=== PATIENT | female | born 1985 | race Caucasian/White ===

== ENCOUNTER 2016-12-20 15:58 | Emergency (ER) | payer OTHER ==
[2016-12-20 16:44] VITALS: BP 113/71
--- NOTE | 2016-12-20 16:56 | UC ---
Abdominal Pain Female HPI - HPI Summary HPI Summary: Vomiting and diarrhea starting 2 days ago. Has had 10-15 episodes of diarrhea per day, and vomiting/dry heaving every 1-[address], mainly in the morning. Daughter dx with strep last week. - History of Current Complaint Chief Complaint: UCGeneralIllness Stated Complaint: VOMITING, DIARRHEA, AND SORE THROAT Time Seen by Provider: 12/20/16 16:40 Hx Obtained From: Patient Hx Last Menstrual Period: 12/18/16 ?: No Onset/Duration: Gradual Onset, Lasting Days Timing: Constant Severity Initially: Moderate Severity Currently: Moderate Radiates: No Character: Cramping Alleviating Factor(s): Nothing Associated Signs and Symptoms: Positive: Fever, Nausea, Vomiting. Negative: Constipation, Blood in Stool, Urinary Symptoms Allergies/Adverse Reactions: Allergies Allergy/AdvReac Type Severity Reaction Status Date / Time Prednisone Allergy Mild bruising Verified 08/15/16 09:43 PMH/Surg Hx/FS Hx/Imm Hx Endocrine History Of: Denies: Diabetes, Thyroid Disease, Hyperthyroidism, Hypothyroidism, Dyslipidemia Cardiovascular History Of: Denies: Cardiac Disorders, Hypertension, Pacemaker/ICD, Myocardial Infarction , Congestive Heart Failure, Atrial Fibrillation, Deep Vein Thrombosis, Bleeding Disorders Respiratory History Of: Denies: COPD, Asthma, Bronchitis, Pneumonia, Pulmonary Embolism GI/ History Of: Denies: Gastroesophageal Reflux, Ulcer, Gastrointestinal Bleed, Gall Bladder Disease, Kidney Stones, Diverticulitis, Renal Disease, Urosepsis Neurological History Of: Denies: TIA, CVA, Dementia, Seizures, Migraine Psychological History Of: Reports: Anxiety, Depression Denies: Bipolar Disorder, Schizophrenia, Post Traumatic Stress Disorder Cancer History Of: Denies: Lung Cancer, Colorectal Cancer, Breast Cancer, Prostate Cancer, Cervical Cancer Other History Of: Negative For: HIV, Hepatitis B, Hepatitis C, Anticoagulant Therapy - Surgical History Surgical History: Yes Surgery Procedure, Year, and Place: tumor removed R thigh - Family History Known Family History: Positive: Hypertension Negative: Cardiac Disease, Diabetes - Social History Lives: With Family Alcohol Use: Occasionally Substance Use Type: None Smoking Status (MU): Light Every Day Tobacco Smoker Type: Cigarettes Amount Used/How Often: 1-5 cigs per day Length of Time of Smoking/Using Tobacco: 2 years Have You Smoked in the Last Year: Yes Household Exposure Type: Cigarettes - Immunization History Most Recent Influenza Vaccination: not this season Review of Systems Constitutional: Fever Skin: Negative Eyes: Negative ENT: Negative Respiratory: Negative Cardiovascular: Negative Gastrointestinal: Vomiting, Diarrhea Genitourinary: Negative Motor: Negative Neurovascular: Negative Musculoskeletal: Negative Neurological: Negative Psychological: Negative All Other Systems Reviewed And Are Negative: Yes Physical Exam Triage Information Reviewed: Yes Appearance: Well-Appearing, No Pain Distress, Well-Nourished Vital Signs: Initial Vital Signs Temp 99.2 F 12/20/16 16:39 Pulse 67 12/20/16 16:39 Resp 16 12/20/16 16:39 BP 113/71 12/20/16 16:39 Pulse Ox 100 12/20/16 16:39 Vital Signs Reviewed: Yes Eye Exam: Normal Eyes: Positive: Conjunctiva Clear ENT: Positive: Pharynx normal, TMs normal. Negative: Nasal congestion, Nasal drainage, Tonsillar swelling, Tonsillar exudate Dental Exam: Normal Neck exam: Normal Neck: Positive: Supple, Nontender, No Lymphadenopathy Respiratory Exam: Normal Respiratory: Positive: Chest non-tender, Lungs clear, Normal breath sounds, No respiratory distress, No accessory muscle use Cardiovascular Exam: Normal Cardiovascular: Positive: RRR, No Murmur Abdomen Description: Positive: Nontender, No Organomegaly, Soft. Negative: CVA Tenderness (R), CVA Tenderness (L) Musculoskeletal Exam: Normal Neurological Exam: Normal Psychological Exam: Normal Skin Exam: Normal Abd Pain Female Course/Dx - Differential Dx/Diagnosis Provider Diagnoses: Acute gastroenteritis Discharge - Discharge Plan Condition: Stable Disposition: HOME Prescriptions: Ondansetron TAB* [Zofran 4 MG Tab*] 4 mg PO Q6H PRN #10 tab PRN Reason: Nausea Patient Education Materials: Gastroenteritis (ED) Referrals: Juan Jose Hodges MD [Primary Care Provider] - Additional Instructions: Rapid strep negative. Make sure you get seen again if you do not see clear improvement in your symptoms within 48 hours. You can take 2 pills of the zofran together for a bedtime dose.
== END 2016-12-20 17:11 | disposition home or self-care (01) ==
LOC: UCEAST 15:58
DX: K52.9 Noninfective gastroenteritis and colitis, unspecified (principal); Z88.8 Allergy status to other drugs, medicaments and biological substances; F17.210 Nicotine dependence, cigarettes, uncomplicated
CPT/HCPCS: 87651; 99212; G0463

== ENCOUNTER 2017-01-19 08:48 | Emergency (ER) | payer OTHER ==
[2017-01-19 09:04] VITALS: BP 131/80
[2017-01-19] MEDS ORDERED: Acetaminophen TAB* 325 MG PO ONE (09:07)
[2017-01-19] MEDS ORDERED: Ondansetron ODT TAB* 4 MG PO ONE (09:08)
--- NOTE | 2017-01-19 10:34 | UC ---
FLU HPI - HPI Summary HPI Summary: vomiting, diarrhea, hot and cold chills (didn't take her temp) since 01/16/17, just got over strep 2 weeks ago (was on Abx). Ate take out food but no one else sick. [place]. [place] traveled out of the country. No one else is ill at home. Diarrhea stopped 2 days ago. No blood in diarrhea or vomit. - History of Current Complaint Chief Complaint: UCGI Stated Complaint: FEVER,VOMITING,DIARRHEA Time Seen by Provider: 01/19/17 09:07 Hx Obtained From: Patient Hx Last Menstrual Period: 01/18/17 Onset/Duration: Gradual Onset, Lasting Days, Still Present Severity Currently: Moderate Severity Initially: Moderate Pain Intensity: 0 Pain Scale Used: 0-10 Numeric Associated Signs & Symptoms: Positive: Fever - Risk Factors Influenza Risk Factors: Negative - Allergy/Home Medications Allergies/Adverse Reactions: Allergies Allergy/AdvReac Type Severity Reaction Status Date / Time Prednisone Allergy Mild bruising Verified 01/19/17 08:57 Home Medications: Home Medications Diazepam TAB(*) [Valium TAB(*)] 5 mg PO TID PRN 01/19/17 [History Confirmed 04/01] PMH/Surg Hx/FS Hx/Imm Hx Psychological History Of: Reports: Anxiety, Depression Denies: Bipolar Disorder, Schizophrenia, Post Traumatic Stress Disorder Cancer History Of: Denies: Lung Cancer, Colorectal Cancer, Breast Cancer, Prostate Cancer, Cervical Cancer Other History Of: Negative For: HIV, Hepatitis B, Hepatitis C, Anticoagulant Therapy - Surgical History Surgical History: Yes Surgery Procedure, Year, and Place: tumor removed R thigh - Family History Known Family History: Positive: Hypertension Negative: Cardiac Disease, Diabetes - Social History Occupation: Employed Full-time Lives: With Family Alcohol Use: Occasionally Substance Use Type: None Smoking Status (MU): Light Every Day Tobacco Smoker Type: Cigarettes Amount Used/How Often: 1/4 PPD Length of Time of Smoking/Using Tobacco: since age 25 Have You Smoked in the Last Year: Yes Household Exposure Type: Cigarettes - Immunization History Most Recent Influenza Vaccination: Not the 2016/2016 Season Review of Systems Constitutional: Fever, Chills Skin: Negative Eyes: Negative ENT: Negative Respiratory: Negative Cardiovascular: Negative Gastrointestinal: Vomiting, Diarrhea Genitourinary: Negative Motor: Negative Neurovascular: Negative Musculoskeletal: Myalgia Neurological: Headache Psychological: Negative All Other Systems Reviewed And Are Negative: Yes Physical Exam Triage Information Reviewed: Yes Appearance: No Pain Distress, Well-Nourished, Ill-Appearing Vital Signs: Initial Vital Signs Temp 98.2 F 01/19/17 08:54 Pulse 64 01/19/17 08:54 Resp 18 01/19/17 08:54 BP 131/80 01/19/17 08:54 Pulse Ox 100 01/19/17 08:54 elevated BP noted Vital Signs Reviewed: Yes Eyes: Positive: Conjunctiva Clear ENT: Positive: Hearing grossly normal, Pharyngeal erythema, TMs normal, Tonsillar swelling. Negative: Tonsillar exudate, Muffled/hoarse voice Neck: Positive: Supple, Nontender, No Lymphadenopathy Respiratory: Positive: Lungs clear, Normal breath sounds, No respiratory distress Cardiovascular: Positive: RRR, No Murmur, Pulses Normal, Brisk Capillary Refill Abdomen Description: Positive: Nontender, No Organomegaly, Soft. Negative: CVA Tenderness (R), CVA Tenderness (L), Distended, Guarding, Hepatomegaly, McBurney' s Point Tenderness, Peritoneal Signs, Pulsatile Mass, Splenomegaly Bowel Sounds: Positive: Present Musculoskeletal: Positive: Strength Intact, ROM Intact Neurological: Positive: Alert, Muscle Tone Normal Psychological Exam: Normal Skin Exam: Normal Flu Course/Dx - Differential Dx/Diagnosis Differential Diagnosis/HQI/PQRI: Influenza, Upper Respiratory Infection, Other - gastroenteritis Provider Diagnoses: gastroenteritis Discharge - Discharge Plan Condition: Stable Disposition: HOME Prescriptions: Ondansetron ODT TAB* [Zofran 4 MG Odt TAB*] 4 mg PO Q6H PRN #15 tab.odt PRN Reason: Nausea Patient Education Materials: Gastroenteritis (ED) Forms: *Work Release Referrals: Juan Jose Hodges MD [Primary Care Provider] -
== END 2017-01-19 11:03 | disposition home or self-care (01) ==
LOC: UCCORT 08:48
DX: K52.9 Noninfective gastroenteritis and colitis, unspecified (principal); Z88.8 Allergy status to other drugs, medicaments and biological substances; F41.8 Other specified anxiety disorders; F17.210 Nicotine dependence, cigarettes, uncomplicated
CPT/HCPCS: 87502; 99212; A9270-GY; G0463

== ENCOUNTER 2017-05-29 12:05 | Emergency (ER) | payer OTHER ==
[2017-05-29 13:36] VITALS: BP 107/64
--- NOTE | 2017-05-29 13:48 | UC ---
Back Pain HPI - HPI Summary HPI Summary: 31 y/o female presents to the urgent care c/o RT mid back pain w/ spasm since Monday. Pt states HX of scoliosis and de generative disc disease. Pain is 8/ 10 with movement and 4/10 at rest. Localized to the mid back associated w/ mild selling on the RT side w/o any numbness or tingling. She has placed ice and hot compresses w/o any relieve. Pt denies fever, SOB, chest pain, saddle anesthesia, bowel or urinary incontinence. Doesn't recall any injury or heavy lifting lately. . - History of Current Complaint Chief Complaint: UCBackPain Stated Complaint: BACK PAIN Time Seen by Provider: 05/29/17 13:46 Hx Obtained From: Patient Hx Last Menstrual Period: unknown, mirena ?: No Onset/Duration: Gradual Onset, Lasting Days, Still Present Timing: Intermittent, Lasting Days Severity Initially: Mild Severity Currently: Moderate Pain Intensity: 8 Pain Scale Used: 0-10 Numeric Back Pain: Is Discrete @ - at the mid back Character: Sharp, Spasmodic Aggravating: Movement, Bending Alleviating: Rest Associated Signs And Symptoms: Positive: Swelling, Pain with Weight Bearing. Negative: Numbness, Tingling, Flank Pain, Bladder Incontinence, Bowel Incontinence - Risk Factors AAA Risk Factors: Negative TAD Risk Factors: Negative Cauda Equina Risk Factors: Negative Epidural Abscess Risk Factors: Negative - Allergies/Home Medications Allergies/Adverse Reactions: Allergies Allergy/AdvReac Type Severity Reaction Status Date / Time Prednisone Allergy Mild bruising Verified 05/29/17 13:36 PMH/Surg Hx/FS Hx/Imm Hx Previously Healthy: Yes Other Neurological History: Dextroscoliosis Psychological History: Anxiety, Depression Other Psychological History: ADHD Other History Of: Negative For: HIV, Hepatitis B, Hepatitis C, Anticoagulant Therapy - Surgical History Surgical History: Yes Surgery Procedure, Year, and Place: tumor removed R thigh - Family History Known Family History: Positive: Hypertension Negative: Cardiac Disease, Diabetes - Social History Occupation: Employed Full-time Lives: With Family Alcohol Use: Rare Substance Use Type: None Smoking Status (MU): Light Every Day Tobacco Smoker Type: Cigarettes Amount Used/How Often: 1/4 PPD Length of Time of Smoking/Using Tobacco: since age 25 Have You Smoked in the Last Year: Yes Household Exposure Type: Cigarettes - Immunization History Most Recent Influenza Vaccination: Not the 2015/2016 Season Review of Systems Constitutional: Negative Skin: Negative Eyes: Negative ENT: Negative Respiratory: Negative Cardiovascular: Negative Gastrointestinal: Negative Genitourinary: Negative Motor: Negative Neurovascular: Negative Musculoskeletal: Other: - Mid back pain w/ spasm Neurological: Negative Psychological: Negative All Other Systems Reviewed And Are Negative: Yes Physical Exam Triage Information Reviewed: Yes Appearance: Well-Appearing, No Pain Distress, Well-Nourished, Thin Vital Signs: Initial Vital Signs Temp 99.2 F 05/29/17 13:31 Pulse 52 05/29/17 13:31 Resp 16 05/29/17 13:31 BP 107/64 05/29/17 13:31 Pulse Ox 100 05/29/17 13:31 Vital Signs Reviewed: Yes Eye Exam: Normal Eyes: Positive: Conjunctiva Clear - PERRLA, EOMI, fundi grossly normal ENT Exam: Normal ENT: Positive: Normal ENT inspection, Hearing grossly normal, Pharynx normal, TMs normal Dental Exam: Normal Neck exam: Normal Neck: Positive: Supple, Nontender, No Lymphadenopathy Respiratory Exam: Normal Respiratory: Positive: Chest non-tender, Lungs clear, Normal breath sounds Cardiovascular Exam: Normal Cardiovascular: Positive: RRR, No Murmur, Pulses Normal, Brisk Capillary Refill Abdominal Exam: Normal Abdomen Description: Positive: Nontender, No Organomegaly, Soft. Negative: CVA Tenderness (R), CVA Tenderness (L) Bowel Sounds: Positive: Present Musculoskeletal: Positive: Strength Intact, Other: - BACK: Patient walked into the urgent care room with symmetric ambulation, No signs of limping, antalgic, able to bear weight. No signs of trauma, No masses palpated. Pt with Dextroscoliosis. Point tenderness at the level of [id number], No CVAT, no flank ecchymosis . No sacroiliac notch tenderness, No saddle anesthesia.limited ROM due to pain, mild swelling at the RT side of mid back w/ moderate back spasm. Straight Leg Raise: negative. Patellar reflexes: WNL, lower extremities pulses WNL Neurological Exam: Normal Psychological Exam: Normal Skin Exam: Normal Back Pain Course/Dx - Course Course Of Treatment: 31 y/o female presents to the urgent care c/o RT mid back pain w/ spasm since Monday. Pt states HX of scoliosis and de generative disc disease. Pain is 8/10 with movement and 4/10 at rest. Localized to the mid back associated w/ mild selling on the RT side w/o any numbness or tingling. She has placed ice and hot compresses w/o any relieve. Pt denies fever, SOB, chest pain, saddle anesthesia, bowel or urinary incontinence. Doesn't recall any injury or heavy lifting lately. HX obtained. PT with HX of Dextroscoliosis exacerbated by pickcing up her daughter. Pt give toradol IM inj. Pt tolerated well IM inj and felt better. Pt RX Flexeril PO and ibuprofen PO to alleviate symptoms. PT referrall given. advised heavy lifting, wear a back support and if no resolution of symptoms to f/u with her PCP for further evaluation and treatment. Pt understood and agreed and left clinic ambulating. - Differential Dx/Diagnosis Differential Diagnosis/HQI/PQRI: Arthritis, Fracture, Herniated Disc, Strain, Sprain, Other - Scoliosis, back spasm Provider Diagnoses: 1- Acute Mid back pain w/ back spasm. 2-Dextroscoliosis Discharge - Discharge Plan Condition: Stable Disposition: HOME Prescriptions: Cyclobenzaprine TAB* [Flexeril 10 MG TAB*] 10 mg PO TID PRN #15 tab PRN Reason: Spasms - Back Ibuprofen TAB* [Motrin TAB* 800 MG] 800 mg PO Q6H #20 tab Patient Education Materials: Acute Low Back Pain (ED) Forms: *Work Release Referrals: Juan Jose Hodges MD [Primary Care Provider] - 1 Week Additional Instructions: 1-Take ibuprofen as instructed after meals to alleviate pain and swelling. 2- Take Flexeril to alleviate back spasm, Avoid driving if you feel drowsy. 3-Wear a back support and avoid heavy lifting or strenuous exercise. 4-F/u PT referral for further evaluation and treatment 5-If symptoms do not improve or worsen please return to the urgent care or f/u with your PCP for further evaluation and treatment
[2017-05-29] MEDS ORDERED: Ketorolac INJ* 60 MG/2 ML VIAL IM ONE (14:03)
== END 2017-05-29 14:27 | disposition home or self-care (01) ==
LOC: UCCORT 12:05
DX: M54.9 Dorsalgia, unspecified (principal); M62.830 Muscle spasm of back; M41.9 Scoliosis, unspecified; F41.9 Anxiety disorder, unspecified; F32.9 Major depressive disorder, single episode, unspecified; F90.9 Attention-deficit hyperactivity disorder, unspecified type; Z88.8 Allergy status to other drugs, medicaments and biological substances; F17.210 Nicotine dependence, cigarettes, uncomplicated
CPT/HCPCS: 96372; 99212; G0463; J1885

== ENCOUNTER 2018-06-15 16:39 | Emergency (ER) | payer OTHER ==
[2018-06-15 17:06] VITALS: BP 116/68
[2018-06-15] MEDS ORDERED: Sulfamethox/Trimethoprim DS 800/160* TAB PO ONE (17:38)
[2018-06-15] MEDS ORDERED: Phenazopyridine TAB* 100 MG PO ONE (17:38)
--- NOTE | 2018-06-15 17:40 | UC ---
Complaint Female HPI - HPI Summary HPI Summary: day 2 of pain burning, urgency,and frequency small voids--no fevers chills nausea or vomiting - History Of Current Complaint Chief Complaint: UCGU Stated Complaint: POSS UTI Time Seen by Provider: 06/15/18 17:33 Hx Obtained From: Patient Hx Last Menstrual Period: IUD ?: No Onset/Duration: Sudden Onset, Lasting Days - 2 Timing: Constant Pain Intensity: 5 Pain Scale Used: 0-10 Numeric Character: Burning Aggravating Factor(s): Urination Alleviating Factor(s): Position Associated Signs And Symptoms: Positive: Negative - Allergies/Home Medications Allergies/Adverse Reactions: Allergies Allergy/AdvReac Type Severity Reaction Status Date / Time prednisone Allergy Mild See Comment Verified 06/15/18 17:06 PMH/Surg Hx/FS Hx/Imm Hx Previously Healthy: Yes Psychological History: Anxiety Other History Of: Negative For: HIV, Hepatitis B, Hepatitis C, Anticoagulant Therapy - Surgical History Surgical History: Yes Surgery Procedure, Year, and Place: tumor removed R thigh - Family History Known Family History: Positive: Hypertension Negative: Cardiac Disease, Diabetes - Social History Occupation: Works From/At Home Lives: With Family Alcohol Use: Rare Substance Use Type: None Smoking Status (MU): Light Every Day Tobacco Smoker Type: Cigarettes Amount Used/How Often: 1/4 PPD Length of Time of Smoking/Using Tobacco: since age 25 Have You Smoked in the Last Year: Yes Household Exposure Type: Cigarettes - Immunization History Most Recent Influenza Vaccination: Not the 2015/2016 Season Review of Systems Constitutional: Negative Skin: Negative Eyes: Negative ENT: Negative Respiratory: Negative Cardiovascular: Negative Gastrointestinal: Negative Genitourinary: Dysuria, Frequency, Urgency Motor: Negative Neurovascular: Negative Musculoskeletal: Negative Neurological: Negative Psychological: Negative Is Patient Immunocompromised?: No All Other Systems Reviewed And Are Negative: Yes Physical Exam Triage Information Reviewed: Yes Appearance: Well-Appearing, No Pain Distress, Well-Nourished Vital Signs: Initial Vital Signs Temp 99.3 F 06/15/18 16:58 Pulse 58 06/15/18 16:58 Resp 16 06/15/18 16:58 BP 116/68 06/15/18 16:58 Pulse Ox 100 06/15/18 16:58 Vital Signs Reviewed: Yes Eye Exam: Normal Eyes: Positive: Conjunctiva Clear ENT Exam: Normal ENT: Positive: Normal ENT inspection, Hearing grossly normal. Negative: Trismus , Muffled voice, Hoarse voice Dental Exam: Normal Neck exam: Normal Neck: Positive: Supple, Nontender, No Lymphadenopathy Respiratory Exam: Normal Respiratory: Positive: Chest non-tender, No respiratory distress, No accessory muscle use Cardiovascular Exam: Normal Cardiovascular: Positive: RRR, Pulses Normal, Brisk Capillary Refill Abdominal Exam: Normal Abdomen Description: Positive: No Organomegaly, Soft. Negative: CVA Tenderness (R), CVA Tenderness (L) Musculoskeletal Exam: Normal Musculoskeletal: Positive: Strength Intact, ROM Intact Neurological Exam: Normal Neurological: Positive: Alert, Muscle Tone Normal Psychological Exam: Normal Skin Exam: Normal Complaint Female Dx - Course Course Of Treatment: culture urine, rx pyridium, bactrim, increase fluids follow with pcp prn - Differential Dx/Diagnosis Provider Diagnoses: UTI Discharge - Sign-Out/Discharge Documenting (check all that apply): Patient Departure All imaging exams completed and their final reports reviewed: No Studies - Discharge Plan Condition: Stable Disposition: HOME Prescriptions: Phenazopyridine 200 mg (NF) [Pyridium 200 MG tab *] 200 mg PO TID PRN #9 tab PRN Reason: urinary pain/burning Sulfamethox/Trimethoprim DS* [Bactrim DS 800/160 TAB*] 1 tab PO BID #9 tab Patient Education Materials: Phenazopyridine (By mouth), Urinary Tract Infection in Women (ED) Referrals: Juan Jose Hodges MD [Primary Care Provider] - If Needed - Billing Disposition and Condition Condition: STABLE Disposition: Home
--- NOTE | 2018-06-18 16:02 | UC ---
- Progress Note Progress Note: 06/18/2018 Urine culture returned + for E.Coli. Pt Rx Bactrim PO and Pyrilium PO. E. Coli sensitive to Bactrim PO. No change. Leticia Walker PA-C Discharge - Sign-Out/Discharge Documenting (check all that apply): Patient Departure - D/c home All imaging exams completed and their final reports reviewed: No Studies - Discharge Plan Condition: Stable Disposition: HOME Prescriptions: Phenazopyridine 200 mg (NF) [Pyridium 200 MG tab *] 200 mg PO TID PRN #9 tab PRN Reason: urinary pain/burning Sulfamethox/Trimethoprim DS* [Bactrim DS 800/160 TAB*] 1 tab PO BID #9 tab Patient Education Materials: Phenazopyridine (By mouth), Urinary Tract Infection in Women (ED) Referrals: Juan Jose Hodges MD [Primary Care Provider] - If Needed - Billing Disposition and Condition Condition: STABLE Disposition: Home
== END 2018-06-15 18:00 | disposition home or self-care (01) ==
LOC: UCEAST 16:39
DX: N39.0 Urinary tract infection, site not specified (principal)
CPT/HCPCS: 81003; 87077; 87086; 87186; 99212; A9270-GY; G0463

== ENCOUNTER 2019-12-18 13:43 | Emergency (ER) | payer OTHER ==
[2019-12-18 14:00] VITALS: BP 115/87
--- NOTE | 2019-12-18 14:16 | UC ---
Respiratory Complaint HPI - HPI Summary HPI Summary: cough x 1 weeks cough is productive with yellow sputum worse with deep breathing , better with rest nasal congestion , pnd, sore throat fever, chills, body aches, sob when lying down - History of Current Complaint Chief Complaint: UCGeneralIllness Stated Complaint: SOB,COUGH Time Seen by Provider: 12/18/19 14:00 Hx Obtained From: Patient Hx Last Menstrual Period: IUD ?: No Onset/Duration: Gradual Onset, Lasting Days - 7, Still Present Timing: Constant Severity Initially: Moderate Severity Currently: Moderate Pain Intensity: 2 Character: Cough: Productive Aggravating Factors: Exertion, Deep Breaths Alleviating Factors: Nothing Associated Signs And Symptoms: Positive: Dyspnea, Fever, Chills, URI, Nasal Congestion. Negative: Pleuritic Chest Pain, Wheezing - Allergies/Home Medications Allergies/Adverse Reactions: Allergies Allergy/AdvReac Type Severity Reaction Status Date / Time prednisone Allergy Mild See Comment Verified 12/18/19 14:00 Home Medications: Home Medications Azithromycin TAB* [Zithromax TAB (Z-ARNOLDO) 250 mg #6 tabs] 2 tab PO .TODAY, THEN 1 DAILY #1 arnoldo 12/18/19 [Rx] Calcium Carbonate CHEW TAB* [Tums*] 500 mg PO BID PRN 12/18/19 [History Confirmed 12/18/19] Guaifenesin/Pseudoephedrne HCl [Mucinex D] 1 tab PO ONCE 12/18/19 [History Confirmed 12/18/19] Ibuprofen TAB* [Motrin TAB* 400 MG] 400 mg PO Q6H PRN 12/18/19 [History Confirmed 12/18/19] Ondansetron ODT TAB* [Zofran 4 MG Odt TAB*] 8 mg PO Q8H PRN #6 tab.odt 12/18/19 [Rx] Phenylephrine/Dm/Acetaminop/GG [Vicks Dayquil Severe Cold-Flu] 1 each PO ONCE [History Confirmed 12/18/19] PMH/Surg Hx/FS Hx/Imm Hx - Additional Past Medical History Additional PMH: degenerative disc disease scoliosis Other History Of: Negative For: HIV, Hepatitis B, Hepatitis C, Anticoagulant Therapy - Surgical History Surgical History: Yes Surgery Procedure, Year, and Place: tumor removed R thigh - Family History Known Family History: Positive: Hypertension Negative: Cardiac Disease, Diabetes - Social History Alcohol Use: Rare Substance Use Type: None Smoking Status (MU): Light Every Day Tobacco Smoker Type: Cigarettes Amount Used/How Often: 1/4 PPD Length of Time of Smoking/Using Tobacco: since age 25 Have You Smoked in the Last Year: Yes Household Exposure Type: Cigarettes - Immunization History Most Recent Influenza Vaccination: Not the Season Review of Systems All Other Systems Reviewed And Are Negative: Yes Constitutional: Positive: Fever, Chills, Fatigue Skin: Positive: Negative Eyes: Positive: Negative ENT: Positive: Sore Throat, Nasal Discharge Respiratory: Positive: Cough Is Patient Immunocompromised?: No Physical Exam Triage Information Reviewed: Yes Appearance: Well-Appearing, No Pain Distress, Well-Nourished Vital Signs: Initial Vital Signs Temp 99.7 F 12/18/19 13:53 Pulse 58 12/18/19 13:53 Resp 18 12/18/19 13:53 BP 115/87 12/18/19 13:53 Pulse Ox 100 12/18/19 13:53 Vital Signs Reviewed: Yes Eye Exam: Normal Eyes: Positive: Conjunctiva Clear ENT: Positive: Normal ENT inspection, Hearing grossly normal, Pharynx normal, Nasal drainage, TMs normal Neck: Positive: Supple, Nontender, No Lymphadenopathy Respiratory: Positive: Chest non-tender, Lungs clear, Normal breath sounds Cardiovascular: Positive: RRR, No Murmur, Pulses Normal Skin Exam: Normal Respiratory Course/Dx - Differential Dx/Diagnosis Provider Diagnosis: Bronchitis Discharge ED - Sign-Out/Discharge Documenting (check all that apply): Patient Departure All imaging exams completed and their final reports reviewed: No Studies - Discharge Plan Condition: Stable Disposition: HOME Prescriptions: Azithromycin TAB* [Zithromax TAB (Z-ARNOLDO) 250 mg #6 tabs] 2 tab PO .TODAY, THEN 1 DAILY #1 arnoldo Ondansetron ODT TAB* [Zofran 4 MG Odt TAB*] 8 mg PO Q8H PRN #6 tab.odt PRN Reason: Nausea/Vomiting Patient Education Materials: Acute Bronchitis (ED) Referrals: Juan Jose Hodges MD [Primary Care Provider] - 7 Days - Billing Disposition and Condition Condition: STABLE Disposition: Home
== END 2019-12-18 14:22 | disposition home or self-care (01) ==
LOC: UCCORT 13:43
DX: J40 Bronchitis, not specified as acute or chronic (principal); J02.9 Acute pharyngitis, unspecified; M51.9 Unspecified thoracic, thoracolumbar and lumbosacral intervertebral disc disorder; F17.210 Nicotine dependence, cigarettes, uncomplicated; Z88.8 Allergy status to other drugs, medicaments and biological substances
CPT/HCPCS: 99212; G0463